=== PATIENT | male | born 2000 | race American Indian/Alaskan Native ===

== ENCOUNTER 2020-12-06 22:39 | Emergency (ER) | payer SELFPAY ==
[2020-12-06 23:10] VITALS: BP 146/92
--- NOTE | 2020-12-06 23:21 | Emergency Department Report ---
Upper Extremity - HPI Chief Complaint: Extremity Injury, Upper Stated Complaint: LT SHOULDER PAIN Time Seen by Provider: 12/06/20 23:13 Upper Extremity: Left Forearm Occurred When: 2 Days Symptoms: Yes Pain with Movement, Yes Swelling, No Deformity, No Limited Range of Movement, No Numbness, No Weakness, No Bruising/Ecchymosis, No Laceration or Abrasion Other History: 20-year-old obese F [place] male no significant past medical history of asthma department complaining of pain swelling to the left arm couple days after receiving a tattoo to the entire forearm and fourth and a portion of his bicep. States since the tattoo he noticed some some redness and swelling and and some throbbing pain that radiates to his axilla area. Reports no fever, chills, sweats no nausea no vomiting. ED Review of Systems ROS: Stated complaint: LT SHOULDER PAIN Other details as noted in HPI Comment: All other systems reviewed and negative ED Past Medical Hx - Past Medical History Previous Medical History?: No Additional medical history: dvt to right leg - Social History Smoking Status: Never Smoker Substance Use Type: Marijuana - Medications Home Medications: Home Medications Medication Instructions Recorded Confirmed Last Taken Type Diclofenac Sodium 75 mg PO BID #10 tablet. 12/06/20 Unknown Rx cephALEXin [Keflex] 500 mg PO Q8HR #21 cap 12/06/20 Unknown Rx Upper Extremity Exam - Exam General: Vital signs noted. No distress. Alert and acting appropriately. Head and Torso: No HEENT Abnormality, No Neck Tenderness, No Chest/Lungs Abnormality, No Abdominal Tenderness, No Back Tenderness Shoulder Exam: Yes Normal Range of Motion in Shoulder, No Shoulder Tenderness, No Clavicle Tenderness, No Shoulder Deformity, No AC Joint Tenderness Arm Exam: No Arm/Humerus Tenderness, No Arm Deformity Elbow: No Elbow Tenderness, No Normal Range of Motion in Elbow, No Elbow Deformity Forearm: Yes Forearm Tenderness (There is visible redness and swelling to the medial area of his tattoo but no abscess is formed. States tenderness performed with palpation to the region. Full range of motion of the hand wrist and elbow and shoulder. No epitrochlear adenopathy no axillary lymphadenopathy no lymphangitis. No cord sign. Pulses 2+ capillary refills are brisk.), No Forearm Deformity, No Pain with Pronation, No Pain with Supination Wrist: Yes Normal ROM in Wrist, No Wrist Tenderness, No Wrist Deformity, No Snuffbox Tenderness, No Pain with Axial Thumb Compression Hand: Yes Normal ROM in Digit(s), No Hand Tenderness, No Hand Deformity, No Digit Tenderness, No Digit(s) Deformity, No Tendon Dysfunction CMS Exam: Yes Normal Distal Pulses, Yes Normal Capillary Refill, No Broken Skin, No Normal Distal Sensation ED Course Vital Signs 12/06/20 23:05 Temperature 98.3 F Pulse Rate 69 Respiratory 18 Rate Blood Pressure 146/92 O2 Sat by Pulse 100 Oximetry ED Medical Decision Making - Medical Decision Making 20-year-old [place] male status post tattoo to the to the left arm which appears to have be having a tattoo reaction versus possible early sepsis cellulitis. Advised Mr. Kelly on the expectations of his tattoo healing process. Also advised him to follow-up and return to see his primary care provider in 1 to 2 days to reevaluate the wound. Critical care attestation.: If time is entered above; I have spent that time in minutes in the direct care of this critically ill patient, excluding procedure time. ED Disposition Clinical Impression: Tattoo reaction, Arm contusion Disposition: DC-01 TO HOME OR SELFCARE Is pt being admited?: No Does the pt Need Aspirin: No Condition: Stable Instructions: Cellulitis, Adult, How to Use Cold Therapy, [id number], Contusion, [id number], How to Use Cold Therapy Prescriptions: Diclofenac Sodium 75 mg PO BID #10 tablet. cephALEXin [Keflex] 500 mg PO Q8HR #21 cap Referrals: [facility] [Provider Group] - 3-5 Days [facility], [Primary Care Provider] - 3-5 Days
== END 2020-12-07 00:18 | disposition home or self-care (01) ==
LOC: ED 22:39
DX: S40.022A Contusion of left upper arm, initial encounter (principal); L81.8 Other specified disorders of pigmentation; F12.10 Cannabis abuse, uncomplicated; Z79.899 Other long term (current) drug therapy; X58.XXXA Exposure to other specified factors, initial encounter; Y93.89 Activity, other specified; Y92.89 Other specified places as the place of occurrence of the external cause; Y99.8 Other external cause status
CPT/HCPCS: 99281

== ENCOUNTER 2021-03-13 19:04 | Emergency (ER) | payer SELFPAY ==
--- NOTE | 2021-03-13 20:24 | Event Note ---
ED Screening Note Date of service: 03/13/21 Time: 20:19 ED Screening Note: 20-year-old male patient with history of right lower extremity DVT 2 years ago and tobacco use presents to the emergency department with complaints of chest pain starting yesterday. Describes the pain as "sharp/tight," worse with movement. Patient was previously on Xarelto but his physician took him off of the medication after his DVT resolved. At that time, DVT was attributed to preceding ACL injury. No prior history of pulmonary embolism. General: Awake, appropriately interactive, no acute distress. Neck: Supple. Full range of motion intact. Cardiovascular: Normal peripheral perfusion. No reproducible chest wall tenderness. Pulmonary: No respiratory distress. Patient is speaking normally without use of accessory muscles. Skin: No apparent rashes or lesions. Neurological: No facial asymmetry. Speech is clear. Follows commands. Patient is alert and oriented. Musculoskeletal: Moves all four extremities spontaneously with normal range of motion. Psych: Cooperative. Appropriate mood and affect. Vital signs are stable. However, patient is not an appropriate candidate for clinical VTE rule-out using PERC criteria due to history of DVT. Therefore, D- dimer will be obtained for further evaluation. I have greeted and performed a focused rapid initial assessment of this patient. A comprehensive ED assessment and evaluation of the patient, analysis of all test results, and completion of the medical decision-making process will be conducted by additional ED providers. This initial assessment/diagnostic orders/clinical plan/treatment(s) is/are subject to change based on patients health status, clinical progression and re-assessment. Further treatment and workup at subsequent clinical provider's discretion. Patient/guardian urged not to elope from the ED as their condition may be serious if not clinically assessed and managed.
[2021-03-13 21:01] LABS: Basophils # (Auto) 0.1 K/mm3 (0.0-0.1); Basophils % (Auto) 0.7 % (0.0-1.8); Eosinophils # (Auto) 0.1 K/mm3 (0.0-0.4); Eosinophils % (Auto) 0.8 % (0.0-4.3); Hematocrit 42.4 % (35.5-45.6); Hemoglobin 13.7 gm/dl (11.8-15.2); Lymphocytes # (Auto) 2.3 K/mm3 (1.2-5.4); Lymphocytes % (Auto) 23.1 % (13.4-35.0); Mean Corpuscular HGB Conc 32 % (32-34); Mean Corpuscular Volume 76 fl (84-94); Monocytes # (Auto) 0.8 K/mm3 (0.0-0.8); Monocytes % (Auto) 8.4 % (0.0-7.3); Platelet Count 309 K/mm3 (140-440); Red Blood Count 5.59 M/mm3 (3.65-5.03); Red Cell Distribution Width 15.1 % (13.2-15.2)
[2021-03-13 21:02] LABS: Alanine Aminotransferase 25 units/L (7-56); Albumin 4.7 g/dL (3.9-5); BUN/Creatinine Ratio 16; Blood Urea Nitrogen 13 mg/dL (9-20); Calcium 9.1 mg/dL (8.4-10.2); Hemolysis Index 30
--- NOTE | 2021-03-13 21:03 | XRay Report ---
CHEST 2 VIEWS INDICATION / CLINICAL INFORMATION: chest pain. COMPARISON: None available. FINDINGS: SUPPORT DEVICES: None. HEART / MEDIASTINUM: No significant abnormality. LUNGS / PLEURA: No significant pulmonary or pleural abnormality. No pneumothorax. ADDITIONAL FINDINGS: No significant additional findings. IMPRESSION: 1. No acute findings. Signer Name: Min Cortez DO Signed: 03/13/2021 8:58 PM Workstation Name: [id number]
[2021-03-13 21:09] LABS: INR 1.05 (0.87-1.13)
[2021-03-13 21:11] LABS: Partial Thromboplastin Time 30.6 Sec. (24.2-36.6)
--- NOTE | 2021-03-14 00:55 | Emergency Department Report ---
ED Chest Pain HPI - General Chief Complaint: Chest Pain Stated Complaint: CHEST PAIN Source: patient Mode of arrival: Ambulatory Limitations: No Limitations - History of Present Illness Initial Comments: Patient is a 20-year-old AA male patient with history of right lower extremity DVT 2 years ago and tobacco use who presents to the emergency department with complaints of acute onset persistent left-sided chest pain starting that radiates to the left shoulder for the last 2 days. Patient describes the pain as "sharp/tight," worse with movement or active range of motion of left arm. Patient states that he was previously on Xarelto following the right leg DVT diagnosis 2 years ago but his primary care physician took him off of the medication after his DVT resolved. At that time, DVT was attributed to preceding ACL injury. 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 Patient denies dizziness, syncope, nausea, vomiting, headache, shortness of breath, abdominal pain, fall, traumatic injury, numbness and tingl ing or weakness of upper and lower extremities bilaterally, neck pain, fever, chills, cough and no prior history of pulmonary embolism. MD Complaint: chest pain (Left-sided chest pain that radiates to the left arm with movement or physical activity) -: Sudden, days(s) (2) Onset: during exertion, awoke with symptoms, other (Heavy lifting at work) Pain Location: left chest Pain Radiation: LUE Severity: severe Severity scale (0 -10): 7 Quality: tightness, sharp Consistency: constant Improves With: rest Worsens With: exertion, palpation, movement Context: other (History of right leg DVT following ACL surgery 2 years ago) re: denies: nausea, vomting, diaphoresis, dyspnea, sense of impending doom, other Other Symptoms: denies: cough, fever, syncope, rash, acid taste in mouth, leg swelling, palpitations, burping, other Treatments Prior to Arrival: none Aspirin use within the Past 7 Days: (0) No - Related Data On Oral Contraceptives: No Previous Rx's Medication Instructions Recorded Last Taken Type Diclofenac Sodium 75 mg PO BID #10 12/06/20 Unknown Rx cephALEXin [Keflex] 500 mg PO Q8HR #21 cap 04/16/21 Unknown Rx Naproxen 500 mg PO Q12H PRN #20 tablet 03/14/21 Unknown Rx Allergies Allergy/AdvReac Type Severity Reaction Status Date / Time No Known Allergies Allergy Unverified 12/06/20 23:05 Heart Score - HEART Score History: Slightly suspicious EKG: Normal Age: < 45 Risk factors: 1-2 risk factors Troponin: < normal limit HEART Score: 1 - EKG Read Time Time EKG Completed: 19:22 EKG Read Time: 19:29 - Critical Actions Critical Actions: 0-3 pts:0.9-1.7%risk of adverse cardiac event.Candidate for discharge ED Review of Systems ROS: Stated complaint: CHEST PAIN Other details as noted in HPI Constitutional: denies: chills, fever Eyes: denies: eye pain, eye discharge, vision change ENT: denies: ear pain, throat pain Respiratory: denies: cough, shortness of breath, wheezing Cardiovascular: chest pain (Left-sided chest wall pain). denies: palpitations Endocrine: no symptoms reported Gastrointestinal: denies: abdominal pain, nausea, vomiting, diarrhea Genitourinary: denies: urgency, dysuria Musculoskeletal: arthralgia (Left shoulder and upper arm pain). denies: back pain, joint swelling Skin: denies: rash, lesions Neurological: denies: headache, weakness, paresthesias Psychiatric: denies: anxiety, depression Hematological/Lymphatic: denies: easy bleeding, easy bruising ED Past Medical Hx - Past Medical History Previous Medical History?: Yes Hx Deep Vein Thrombosis: Yes (Has taken Xarelto, not anymore) Additional medical history: dvt to right leg - Surgical History Past Surgical History?: No - Social History Smoking Status: Never Smoker Substance Use Type: Marijuana - Medications Home Medications: Home Medications Medication Instructions Recorded Confirmed Last Taken Type Diclofenac Sodium 75 mg PO BID #10 tablet. 12/06/20 Unknown Rx cephALEXin [Keflex] 500 mg PO Q8HR #21 cap 12/06/20 Unknown Rx Naproxen 500 mg PO Q12H PRN #20 tablet 03/14/21 Unknown Rx ED Physical Exam - General Limitations: No Limitations General appearance: alert, in no apparent distress, obese - Head Head exam: Present: atraumatic, normocephalic, normal inspection - Eye Eye exam: Present: normal appearance, PERRL, EOMI Pupils: Present: normal accommodation - ENT ENT exam: Present: normal exam, normal orophraynx, mucous membranes moist, TM's normal bilaterally, normal external ear exam - Neck Neck exam: Present: normal inspection, full ROM. Absent: tenderness, meningismus, lymphadenopathy, thyromegaly - Respiratory Respiratory exam: Present: normal lung sounds bilaterally, chest wall tenderness (Palpable reproducible left-sided chest wall tenderness). Absent: respiratory distress, wheezes, rales, rhonchi - Cardiovascular Cardiovascular Exam: Present: regular rate, normal rhythm, normal heart sounds. Absent: systolic murmur, diastolic murmur, rubs, gallop - GI/Abdominal GI/Abdominal exam: Present: soft, normal bowel sounds. Absent: tenderness, guarding, hyperactive bowel sounds, hypoactive bowel sounds, organomegaly - Extremities Exam Extremities exam: Present: normal inspection, full ROM, normal capillary refill - Back Exam Back exam: Present: normal inspection, full ROM. Absent: tenderness, CVA tenderness (R), CVA tenderness (L), muscle spasm, paraspinal tenderness, vertebral tenderness - Neurological Exam Neurological exam: Present: alert, oriented X3, CN II-XII intact, normal gait, reflexes normal - Psychiatric Psychiatric exam: Present: normal affect, normal mood - Skin Skin exam: Present: warm, dry, intact, normal color. Absent: rash ED Course Vital Signs 03/13/21 19:28 Temperature 98.0 F Pulse Rate 74 Respiratory 18 Rate Blood Pressure 150/76 O2 Sat by Pulse 100 Oximetry LUIS ANTONIO score - Luis Antonio Score Age > 65: (0) No Aspirin use within the Past 7 Days: (0) No 3 or more CAD Risk Factors: (0) No 2 or more Angina events in past 24 hrs: (0) No Known CAD with more than 50% Stenosis: (0) No Elevated Cardiac Markers: (0) No ST Deviation Greater than 0.5mm: (0) No LUIS ANTONIO Score: 0 ED Medical Decision Making - Lab Data Result diagrams: 03/13/21 20:23 03/13/21 20:23 - EKG Data EKG shows normal: sinus rhythm Rate: normal - EKG Data Interpretation: normal EKG 03/14/21 00:58 EKG shows normal sinus rhythm with a ventricular rate of [address] or T wave abnormalities. - Radiology Data Radiology results: report reviewed, image reviewed [facility] [address] [place] [address] XRay Report Signed Patient: KYLE RODRIGUEZ JR MR# : [id number] : 2000 Acct:[id number] Age/Sex: 20 / M ADM Date: 03/13/21 Loc: ED Attending Dr: Ordering Physician: BRANDAN MORRISON Date of Service: 03/13/21 Procedure(s): XR chest routine 2V Accession Number(s): [id number] cc: BRANDAN MORRISON Fluoro Time In Minutes: CHEST 2 VIEWS INDICATION / CLINICAL INFORMATION: chest pain. COMPARISON: None available. FINDINGS: SUPPORT DEVICES: None. HEART / MEDIASTINUM: No significant abnormality. LUNGS / PLEURA: No significant pulmonary or pleural abnormality. No pneum othorax. ADDITIONAL FINDINGS: No significant additional findings. IMPRESSION: 1. No acute findings. Signer Name: Min Cortez DO Signed: 03/13/2021 8:58 PM Workstation Name: [id number] Transcribed By: KIKA Dictated By: MIN CORTEZ DO Electronically Authenticated By: MIN CORTEZ DO Signed Date/Time: 03/13/212057 DD/ 57 TD/TT: - Medical Decision Making This is a 20-year-old AA male patient with history of right lower extremity DVT 2 years ago and tobacco use who presents to the emergency department with complaints of acute onset persistent left-sided chest pain starting that radiates to the left shoulder for the last 2 days. Patient describes the pain as "sharp/tight," worse with movement or active range of motion of left arm. Patient states that he was previously on Xarelto following the right leg DVT diagnosis 2 years ago but his primary care physician took him off of the medication after his DVT resolved. At that time, DVT was attributed to preceding ACL injury. 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 In the ED, patient is alert and oriented x3 and is not in distress but anxious in triage. Patient is hemodynamically stable. The EKG shows normal sinus rhythm with a ventricular rate of [address] or T wave abnormalities. Chest x-ray shows no acute cardiopulmonary abnormalities or pneu monitis. Lab test results were reviewed and are all nonactionable including D- dimer level which was normal. Although the patient's cardiac risk factor is 1, and is PERC positive per Wells criteria, and the patient is currently not on any blood thinners including Xarelto that he had been about 2 years ago, the D- dimer level which is normal rules out presence of any PE as a cause of the patient's chest pain. Physical exam revealed palpable left-sided chest wall tenderness which is consistent with acute costochondritis as the pain is also reproducible with any active range of motion of the left arm or any movement. It is therefore unlikely that the patient's left-sided chest pain is due to ACS, PE or pneumonia or dissection based on the history, physical exam findings, lab test results as well as imaging reports and the patient's vital signs. Patient was therefore discharged home on anti-inflammatory pain medications and advised to follow-up with his primary care physician in 5 to 7 days for reevaluation or return to the ED immediately if symptoms get worse. - Differential Diagnosis ACS, PE, Pneumonia; Muscle strain; costochondritis; dissection Critical Care Time: Yes Critical care time in (mins) excluding proc time.: 35 Critical care attestation.: If time is entered above; I have spent that time in minutes in the direct care of this critically ill patient, excluding procedure time. Critical Care Time: 35 minutes spent on review of the patient's lab test results, imaging reports, EKG, patient education and clinical decision making process. ED Disposition Clinical Impression: Acute nonspecific chest pain with low risk of coronary artery disease, Acute costochondritis, Left-sided chest wall pain Disposition: DC-01 TO HOME OR SELFCARE Is pt being admited?: No Does the pt Need Aspirin: No Condition: Stable Instructions: Chest Pain (ED), Costochondritis, [id number], Nonspecific Chest Pain, Adult, [id number], Chest Wall Pain, [id number] Additional Instructions: All lab test results were reviewed and are all nonactionable. EKG is normal, and chest x-ray also shows no acute cardiopulmonary abnormalities or pneumonitis. Therefore your symptoms are likely due to acute costochondritis or inflammation of the chest wall or muscle strain of the chest wall. Therefore take medications with food, drink plenty of fluids and follow-up with your primary care physician in 5 to 7 days for reevaluation. Return to the ED immediately if symptoms get worse Prescriptions: Naproxen 500 mg PO Q12H PRN #20 tablet PRN Reason: Pain , Severe (7-10) Referrals: [facility] [Provider Group] - 3-5 Days Forms: Work/School Release Form(ED) Time of Disposition: 01:05 Print Language: BENGALI
[2021-03-14] MEDS ORDERED: ACETAMINOPHEN 500 MG TAB PO ONE (01:16)
[2021-03-14] MEDS ORDERED: IBUPROFEN 600 MG TAB PO ONE (01:16)
[2021-03-14 02:38] VITALS: BP 121/83
--- NOTE | 2021-03-14 14:10 | Electrocardiograph Report ---
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
== END 2021-03-14 01:40 | disposition home or self-care (01) ==
LOC: ED 19:04
DX: M94.0 Chondrocostal junction syndrome [Tietze] (principal); R07.89 Other chest pain; F12.90 Cannabis use, unspecified, uncomplicated; Z79.899 Other long term (current) drug therapy
CPT/HCPCS: 36415; 71046; 80053; 83880; 84484; 85025; 85379; 85610; 85730; 93005

== ENCOUNTER 2021-10-08 21:07 | Emergency (ER) | payer SELFPAY ==
--- NOTE | 2021-10-08 23:29 | Emergency Department Report ---
ED ENT HPI - General Chief complaint: Sore Throat Stated complaint: SLIGHT CHEST DISCOMFORT/BLOOD IN MUCUS Time Seen by Provider: 10/08/21 23:13 Source: patient Mode of arrival: Ambulatory Limitations: No Limitations - History of Present Illness Initial comments: Patient presents with bloody nose, cough, congestion, chest soreness from coughing, and hemoptysis. He has been sick for 10 days now. He had had fevers and chills. He was using Tylenol for this. Patient had been coughing. He is now coughing up blood-tinged mucus. That made him very nervous and he decided to come in. He admits that he did check [employer] prior to coming in and that scared him even more. He has no recent travel. There is no pain or swelling in the legs. He has no history of trauma. He is not bleeding from other sites. There is no family history of bleeding disorder. - Related Data Previous Rx's Medication Instructions Recorded Last Taken Type Benzonatate [Tessalon Perles] 100 mg PO Q8HR #21 cap 10/08/21 Unknown Rx cephALEXin [Keflex] 500 mg PO Q8HR #21 cap 10/08/21 Unknown Rx Allergies Allergy/AdvReac Type Severity Reaction Status Date / Time No Known Allergies Allergy Unverified 12/06/20 23:05 ED Dental HPI - General Chief complaint: Sore Throat Stated complaint: SLIGHT CHEST DISCOMFORT/BLOOD IN MUCUS Time Seen by Provider: 10/08/21 23:13 Source: patient Mode of arrival: Ambulatory Limitations: No Limitations - Related Data Previous Rx's Medication Instructions Recorded Last Taken Type Benzonatate [Tessalon Perles] 100 mg PO Q8HR #21 cap 10/08/21 Unknown Rx cephALEXin [Keflex] 500 mg PO Q8HR #21 cap 10/08/21 Unknown Rx Allergies Allergy/AdvReac Type Severity Reaction Status Date / Time No Known Allergies Allergy Unverified 12/06/20 23:05 ED Review of Systems ROS: Stated complaint: SLIGHT CHEST DISCOMFORT/BLOOD IN MUCUS Other details as noted in HPI Comment: All other systems reviewed and negative Constitutional: see HPI Eyes: denies: eye pain ENT: denies: ear pain Respiratory: see HPI Cardiovascular: as per HPI Endocrine: denies: unexplained weight loss Gastrointestinal: denies: hematemesis Genitourinary: denies: hematuria Musculoskeletal: denies: back pain Skin: denies: rash Neurological: denies: headache Hematological/Lymphatic: denies: easy bruising ED Past Medical Hx - Past Medical History Hx Deep Vein Thrombosis: Yes (Has taken Xarelto, not anymore. This was postoperative in nature) Additional medical history: dvt to right leg - Surgical History Additional Surgical History: ACL - Family History Family history: other (Negative for coagulopathy) - Social History Smoking Status: Never Smoker Substance Use Type: Marijuana - Medications Home Medications: Home Medications Medication Instructions Recorded Confirmed Last Taken Type Benzonatate [Tessalon Perles] 100 mg PO Q8HR #21 cap 10/08/21 Unknown Rx cephALEXin [Keflex] 500 mg PO Q8HR #21 cap 10/08/21 Unknown Rx ED Physical Exam - General Limitations: No Limitations, Other (Pulse ox noted and normal) General appearance: alert, in no apparent distress - Head Head exam: Present: atraumatic, normocephalic - Eye Eye exam: Present: normal appearance, EOMI - ENT ENT exam: Present: normal orophraynx, normal external ear exam - Neck Neck exam: Present: normal inspection. Absent: meningismus - Respiratory Respiratory exam: Present: rales (Right base). Absent: respiratory distress - Cardiovascular Cardiovascular Exam: Present: regular rate, normal rhythm - GI/Abdominal GI/Abdominal exam: Present: soft. Absent: tenderness - Extremities Exam Extremities exam: Present: normal capillary refill. Absent: calf tenderness - Back Exam Back exam: Absent: CVA tenderness (R), CVA tenderness (L) - Neurological Exam Neurological exam: Present: alert, oriented X3, CN II-XII intact, normal gait - Psychiatric Psychiatric exam: Present: normal mood, anxious - Skin Skin exam: Present: warm, dry ED Course Vital Signs 10/08/21 22:51 Temperature 98.5 F Pulse Rate 71 Respiratory 18 Rate Blood Pressure 133/92 [Right] O2 Sat by Pulse 100 Oximetry - Reevaluation(s) Reevaluation #1: 10/08/21 23:48 Patient was discharged ED Medical Decision Making - Medical Decision Making Patient presents with respiratory symptoms, blood-tinged sputum, and crackles in the right base. This would be consistent with a right lower lobe pneumonia clinically. He does not have any evidence of bleeding diathesis. He is not bleeding from other sites. He is not anticoagulated. He had a postoperative DVT that required transient treatment with Xarelto. There was no family history of DVT that would suggest this is genetic in nature. He has no recent immobility. He is not having unilateral leg pain or swelling suggestive of DVT currently. Critical Care Time: No Critical care attestation.: If time is entered above; I have spent that time in minutes in the direct care of this critically ill patient, excluding procedure time. ED Disposition Clinical Impression: RLL pneumonia Disposition: HOME / SELF CARE / HOMELESS Is pt being admited?: No Condition: Stable Instructions: Community-Acquired Pneumonia, Adult, Bacterial Pneumonia (ED) Additional Instructions: DRINK WATER. RETURN FOR PROBLEMS. SEE YOUR DOCTOR IN 10D FOR RECHECK. Prescriptions: cephALEXin [Keflex] 500 mg PO Q8HR #21 cap Benzonatate [Tessalon Perles] 100 mg PO Q8HR #21 cap Referrals: PRIMARY CARE, [Referring] - 3-5 Days
[2021-10-08 23:56] VITALS: BP 130/70
== END 2021-10-08 23:58 | disposition home or self-care (01) ==
LOC: ED 21:07
DX: J18.9 Pneumonia, unspecified organism (principal); R04.0 Epistaxis; F12.90 Cannabis use, unspecified, uncomplicated; Z79.899 Other long term (current) drug therapy
CPT/HCPCS: 99282